=== PATIENT | female | born 1960 | race Caucasian/White ===

== ENCOUNTER 2020-07-02 13:53 | Outpatient (CLI) | payer BC, SELFPAY | END 2020-07-02 13:54 | disposition home or self-care (01) | LOC: ANHCOVIDVC 13:54 | DX: Z23 Encounter for immunization (principal) | CPT/HCPCS: 0001A; 91300 ==

== ENCOUNTER 2020-07-23 14:24 | Outpatient (CLI) | payer BC, SELFPAY | END 2020-07-23 14:25 | disposition home or self-care (01) | LOC: ANHCOVIDVC 14:24 | PROVIDERS: PCP Internal Medicine | DX: Z23 Encounter for immunization (principal) | CPT/HCPCS: 0002A; 91300 ==

== ENCOUNTER 2024-11-30 20:44 | Emergency (ER) | payer SELFPAY ==
--- NOTE | ~2024-11-30 | CT_ITS ---
EXAMINATION: CT abdomen pelvis w con DATE: 12/01/2024 01:34 INDICATION: Low abdominal pain. TECHNIQUE: Computed tomography (CT) of the abdomen and pelvis was performed with 100 mL Omnipaque 350 intravenous contrast. Automated exposure control and iterative reconstruction technique were employed. The dose-length product was 339.21 mGy-cm. COMPARISON: None. FINDINGS: The visualized portions of lung bases demonstrate mild atelectasis. No pleural effusion. The heart size is normal. No pericardial effusion. There are cysts in the liver measuring up to 2.3 cm. There are hypodense masses in the spleen measuring up to 7 mm, likely granulomatous disease. The gallbladder is absent. The pancreas, adrenal glands, and left kidney are normal. There is a 5 mm cyst in right kidney. There is wall thickening of the sigmoid colon with surrounding fat stranding, consistent with diverticulitis. There is a 9 mm intramural abscess containing gas. There are no dilated loops of bowel. The appendix is not visualized. There are no pathologically enlarged lymph nodes. There is trace pelvic ascites. There is severe lumbar spondylosis. Lumbar levoscoliosis is noted. IMPRESSION: 1. Sigmoid diverticulitis with 9 mm intramural abscess. Reviewed, dictated and finalized at location K.
[2024-11-30 20:49] VITALS: BP 104/49; PULSE 84; RESP 18; TEMP 37.1; O2SAT 97
[2024-11-30 22:43] LABS: Hematocrit 38.2 % (37.0-47.0); Hemoglobin 12.0 g/dL (12.0-15.0); Immature Granulocyte Percent A 0.4 % (0-0.5); Lymphocytes Absolute Auto 1.07 K/mm3 (0.9-3.2); Mean Corpuscular HGB Conc 31.4 g/dl (32-36); Mean Corpuscular Hemoglobin 27.0 pg (26-34); Mean Corpuscular Volume 85.8 fl (80-100); Nucleated Red Blood Cells Absolute Auto 0.000 K/mm3 (0.0-0.012); Nucleated Red Blood Cells Perc 0.0 % (0.0-0.2); Platelet Count Result 205 k/mm3 (150-375); Red Blood Count 4.45 M/mm3 (4.2-5.4); White Blood Count 9.4 K/mm3 (4.5-10.0)
[2024-11-30 22:55] LABS: Alanine Aminotransferase 23 U/L (6-35); Albumin Level 4.1 g/dL (3.5-5.1); Alkaline Phosphatase 76 U/L (38-126); Anion Gap 9 mmol/L (4-12); Aspartate Amino Transferase 32 U/L (14-36); Bilirubin,Total 0.3 mg/dL (0.2-1.3); Blood Urea Nitrogen 18 mg/dL (7-17); Calcium 8.9 mg/dL (8.4-10.2); Carbon Dioxide 27 mmol/L (22-30); Chloride 103 mmol/L (98-107); Estimated CRCL calculation 49 ml/min; Estimated Glomerular Filt Rate > 60; Glucose 153 mg/dL (65-110); Lipase 48 U/L (23-300); Potassium 3.7 mmol/L (3.4-5.0); Sodium 139 mmol/L (137-145); Total Protein 7.3 g/dL (6.3-8.2)
[2024-11-30 23:00] LABS: BEDSIDEPREGUCG Negative (Negative)
[2024-11-30 23:16] LABS: Add Urine Microscopic? YES; Appearance Urine Clear (Clear); Glucose Urine UA Negative (Negative); Leukocyte Esterase Ur Negative LEU/UL (Negative); Nitrate Urine Negative (Negative); Non Pathogenic Casts 0-2; Specific Grav Ur 1.032 (1.001-1.035)
[2024-12-01 01:03] VITALS: BP 120/77; PULSE 94; RESP 18; O2SAT 98
--- OUTSIDE RECORDS SUMMARY | 2024-12-01 01:15 | XMS_ITS | Clinical Summary ---
Author Organization [facility] Address [address] [place] [id number] Care Team Providers Care Senior Payroll Manager Name Role Phone Unavailable Primary Care Provider Unavailabl e Social History Tobacco Use Types Packs/Day Years Used Date Smoking Tobacco: Never Assessed Comments Unknown Sex and Gender Information Value Date Recorded Sex Assigned at Not on file Legal Sex Female 5:53 PM CDT Gender Identity Not on file Sexual Orientation Not on file Last Filed Vital Signs Vital Sign Reading Time Taken Comments Blood Pressure 112/70 06/08/2017 3:19 PM CDT Pulse 68 04/15/2014 8:19 AM PLATEN GRINDER Temperature - - Respiratory Rate - - Oxygen Saturation - - Inhaled Oxygen Concentration - - Weight 56.7 kg (125 lb) 06/08/2017 3:19 PM CDT Height 154.9 cm (5' 1) 06/08/2017 3:19 PM CDT Body Mass Index 23.62 06/08/2017 3:19 PM CDT Plan of Treatment Health Maintenance Due Date Last Done Comments Colorectal Cancer Screening Colonoscopy (10 Years) 1960 Annual Physical 11/01/1963 Hepatitis C 1978 Cervical Cancer Screening Pa p with HPV Testing (Age 30 to 64) Every 5 Years 1990 Mammogram Screening 2000 Pneumococcal Vaccine: 50+ Years (1 of 1 - PCV) 2010 Zoster Vaccines (1 of 2) 2010 Cervical Cancer Screening Pa p Smear (Age 30 to 64) Every 3 Years 05/16/2020 05/16/2017 Cervical Cancer Screening wi th HPV 05/16/2020 DTaP, Tdap and Td Vaccines ( 2 - Td or Tdap) 04/15/2024 04/15/2014, 12/15/2004 COVID-19 Vaccine ( - 2023-2 5 season) 2024 RSV Immunization or 60+ Years (1 - 1-dose 75+ series) 11/01/2035 Meningococcal B Vaccine Aged Out No l onger eligible based on patient's age to complete this topic Meningococcal Vaccine Aged Out No braden anjel eligible based on patient's age to complete this topic RSV Immunizations Under 20 Months Aged Out No longer eligible b ased on patient's age to complete this topic Procedures Procedure Name Priority Date/Time Associated Diagnosis Comments CYTOPATH CERV/VAG THIN LAYER Routine 05/16/2017 8:39 AM PLATEN GRINDER from Last 3 Months or Most Recently Relevant to Health Maintenance Results * Cytopath Cerv/Vag Thin Layer (05/16/2017 8:39 AM PLATEN GRINDER) COMMENT TOUCHWORKS TO EPIC CONVERSION Comment:Result Comment: NEGA TIVE FOR INTRAEPITHELIAL LESION AND MALIGNANCY. STATEMENT OF ADEQUACY: TOUCHWORKS TO EPIC CONVERSION Comment: Result Comment: Satisfactory for evaluation. Endocervical and/or squamous metaplastic cells (endocervical component) are present. COMMENT TOUCHWORKS TO EPIC CONVERSION Comment:Result Comment: César Andres, Box Order Person (ASCP) COMMENT . TOUCHWORKS TO EPIC CONVERSION NOTE TOUCHWORKS TO EPIC CONVERSION Comment: Result Comment: The Pap smear is a screening test designed to aid in the detection of premalignant and malignant conditions of the uterine cervix. It is not a diagnostic procedure and should not be used as the sole means of detecting cervical cancer. Both false-positive and false-negative reports do occur. . METHOD TOUCHWORKS TO EPIC CONVERSION Comment: Result Comment: This liquid based ThinPrep(R) pap test was screened with the use of an image guided system. PRIMARY DIAGNOSIS: T OUCHWORKS TO EPIC CONVERSION Comment:Result Comment: Z00. 00 05/16/2017 8:39 AM PLATEN GRINDER 05/16/2017 8:39 AM PLATEN GRINDER Narrative TOUCHWORKS TO EPIC CONVERSION - 05/18/2017 1:11 PM PLATEN GRINDER Result Communication: No patient communication needed at this time us Servando Stratton MD PATHOLOGY/CYTOLOGY ORDERABL ES Final Result TOUCHWORKS TO EPIC CONVERSION from Last 3 Months or Most Recently Relevant to Health Maintenance
--- NOTE | 2024-12-01 02:13 | ED_ITS ---
HPI - Abdominal Pain General Chief Complaint: Abdominal Pain Stated Complaint: abdominal pain Time Seen by Provider: 12/01/24 00:43 History of Present Illness HPI narrative: Patient is a 64-year-old female who presents emergency department this evening complaining of lower abdominal pain and cramping for the past week. Denies any constipation or diarrhea, states that his chest pain, patient is a poor historian. States that he took some Pepto-Bismol at home but has not improved. States that she did have a bowel movement prior to coming to the emergency department and did have some cramping with that bowel movement. Otherwise denies any additional symptoms or concerns, no history of abdominal surgeries. Related Data Allergies Allergy/AdvReac Type Severity Reaction Status Date / Time No Known Allergies Allergy Mild Verified 05/31/10 16:57 Review of Systems 2 Review of Systems: All systems are reviewed and are negative unless stated otherwise in the HPI. Exam 2 Narrative: General: Alert, awake, afebrile, in no acute distress. HEENT: PERRL, no rhinorrhea, no post nasal drip, oropharynx clear. Neck: Trachea midline, no JVD, no lymphadenopathy. Cardiovascular: Regular rate and rhythm, no murmurs, rubs or gallops, no peripheral edema. Respiratory: Clear to auscultation bilaterally, no tachypnea, no wheezing, no rhonchi, no rubs, no respiratory distress. Abdomen: Soft, nontender, nondistended, no rebound, no guarding, no peritoneal signs. Musculoskeletal: No joint swelling or deformity, normal muscle tone. Skin: No rashes or petechia, no signs of infection. Psychiatric: Alert and oriented, normal behavior and judgment for situation. Neurological: Alert and oriented to person, place, and time. Follows all commands. No focal deficits, speech is clear and fluent. Course Vital Signs Vital signs: Vital Signs Temperature 98.7 F 11/30/24 20:49 Pulse Rate 84 11/30/24 20:49 Respiratory Rate 18 11/30/24 20:49 Blood Pressure 104/49 L 11/30/24 20:49 Pulse Oximetry 97 11/30/24 20:49 Oxygen Delivery Room Air 11/30/24 20:49 Temperature 98.7 F 11/30/24 20:49 Pulse Rate 97 12/01/24 03:53 Respiratory Rate 18 12/01/24 03:53 Blood Pressure 111/75 12/01/24 03:53 Pulse Oximetry 98 12/01/24 03:53 Oxygen Delivery Room Air 11/30/24 20:49 MDM - Abdominal Pain MDM Narrative Medical decision making narrative: The patient was evaluated by myself in the emergency department. History is obtained from patient who is an independent historian and physical exam was performed. External medical records were reviewed at this time. IV was established and pertinent tests were ordered. Laboratory results obtained revealing no acute process. Urinalysis unremarkable. Imaging studies obtained included CT abdomen pelvis with IV contrast which was independently interpreted by me revealing thickening of the sigmoid colon with surrounding inflammatory changes consistent with colitis, there is a 1.5 cm extra colonic fluid collection with a small bubble of air which could represent diverticulum or confined perforation. Patient was informed of these findings at bedside. At this time I did recommend obtaining a lactic acid for further evaluation giving the CT read of possible perforated bowel, however, patient declined additional blood work. States that she feels great and would like to go home. Patient understands that perforated bowel is one of the differentials and both her and are requesting to be discharged. I did provide the patient strict return precautions informed return to the ED if any new or worsening symptoms develop and patient and both in agreement with current plan. Differential diagnosis considerations include gastroenteritis, gastritis, diverticulitis, appendicitis. Comorbidities impacting this visit include none. I have evaluated and discussed social determinants of health with the patient that could potentially impact subsequent diagnosis and treatment plans. On repeat assessment of the patient, reevaluation revealed that the patient is doing well and is in no acute distress. Patient symptoms have improved since she arrived to our emergency department. Repeat vital signs were all reviewed and noted to be stable. Differential diagnosis and treatment plan were discussed with the patient at bedside. Patient agrees with discussion and after shared medical decision making agrees with discharge. All questions were answered to the patient's satisfaction. Patient will follow up with her PCP in 3-5 days. Patient was provided with strict return precautions and instructed to return to the emergency department if any new or worsening symptoms develop. The patient was discharged in stable condition. Lab Data 11/30/24 22:36 11/30/24 22:36 Labs: Lab Results 11/30/24 11/30/24 11/30/24 Range/Units 22:36 22:57 22:58 WBC 9.4 (4.5-10.0) K/mm3 RBC 4.45 (4.2-5.4) M/mm3 Hgb 12.0 (12.0-15.0) g/dL Hct 38.2 (37.0-47.0) % MCV 85.8 (80-100) fl MCH 27.0 (26-34) pg MCHC 31.4 L (32-36) g/dl RDW 13.8 (11.5-14.5) % Plt Count 205 (150-375) k/mm3 MPV 9.7 (7.4-10.4) fl Immature Gran % (Auto) 0.4 (0-0.5) % Neut % (Auto) 81.1 H (45.5-73.1) % Lymph % (Auto) 11.4 L (18.3-44.2) % [place] % (Auto) 6.4 (2.6-8.5) % Eos % (Auto) 0.4 (0-4.4) % Baso % (Auto) 0.3 (0.2-1.2) % Lymph # (Auto) 1.07 (0.9-3.2) K/mm3 [place] # (Auto) 0.6 (0.1-0.6) K/mm3 Eos # (Auto) 0.0 (0-0.3) K/mm3 Baso # (Auto) 0.0 (0.0-0.1) K/mm3 Abs Immat Gran (auto) 0.04 H (0.00-0.031) K/mm3 Absolute Neuts (auto) 7.6 H (1.3-6.7) K/mm3 Absolute Nucleated RBC 0.000 (0.0-0.012) K/mm3 Nucleated RBC % 0.0 (0.0-0.2) % Sodium 139 (137-145) mmol/L Potassium 3.7 (3.4-5.0) mmol/L Chloride 103 (98-107) mmol/L Carbon Dioxide 27 (22-30) mmol/L Anion Gap 9 (4-12) mmol/L BUN 18 H (7-17) mg/dL Creatinine 0.76 (0.7-1.0) mg/dL Estim Creat Clear Calc 49 ml/min Estimated GFR > 60 (59 - ) Glucose 153 H (65-110) mg/dL Calcium 8.9 (8.4-10.2) mg/dL Total Bilirubin 0.3 (0.2-1.3) mg/dL AST 32 (14-36) U/L ALT 23 (6-35) U/L Alkaline Phosphatase 76 (38-126) U/L Total Protein 7.3 (6.3-8.2) g/dL Albumin 4.1 (3.5-5.1) g/dL Lipase 48 (23-300) U/L Urine Color Dark yellow (Yellow) Urine Appearance Clear (Clear) Urine pH 5.0 (5.0-9.0) Ur Specific [place] 1.032 (1.001-1.035) Urine Protein Trace (Negative) mg/dL Urine Glucose (UA) Negative (Negative) mg/dL Urine Ketones Trace H (Negative) mg/dL Ur Blood (Man) Negative (Negative) Urine Nitrate Negative (Negative) Urine Bilirubin Negative (Negative) Urine Urobilinogen 1.0 (<2.0) mg/dL Leukocyte Esterase Rfl Negative (Negative) SANTO/UL Urine RBC 0-2 (0-2) /hpf Urine WBC 0-5 (0-3) /hpf Ur Squamous Epith Cells None seen (Few) /hpf Urine Bacteria None seen /hpf Urine Casts 0-2 POC Urine HCG, Qual Negative (Negative) Discharge Plan Discharge Clinical Impression: Abdominal pain Patient Disposition: Home Condition: Improved Instructions: Antibiotic Form, Abdominal Pain (ED) Additional Instructions: Please follow-up with the family doctor within the next 3-5 days. Return to emergency department if any new or worsening symptoms develop. Patient Language: Algerian Follow-up/Referrals: UNKNOWN,DOCTOR [Primary Care Provider] - 3 Days Time of Disposition: 03:54
--- NOTE | 2024-12-01 03:50 | PC.NURSE ---
This RN went into pt room to draw lactic. Pt and visitor both ask if it is necessary fr another blood draw. This RN states that the doctor ordered it so I believe it to be necessary. notified and went into pt room to discuss reasons for why we are ordering lactic. After speaking with MD and RN pt and visitor state they dont think it is necessary and want to go home. notified.
[2024-12-01 03:53] VITALS: BP 111/75; PULSE 97; RESP 18; O2SAT 98
== END 2024-12-01 04:04 | disposition home or self-care (01) ==
PROVIDERS: Emergency Provider Emergency Medicine
DX: R10.30 Lower abdominal pain, unspecified (principal)
CPT/HCPCS: 36415; 74177; 80053; 81001; 81025; 83690; 85025; 99284; Q9967